=== PATIENT | female | born 1965 | race Caucasian/White ===

== ENCOUNTER 2017-01-03 05:31 | Day surgery (SDC) | payer OTHER ==
--- NOTE | 2016-12-11 14:58 | GHP ---
[f rep st] PREOP HISTORY AND PHYSICAL SCHEDULED DATE OF SURGERY: 01/03/2017 at 7:15 a.m. SURGERY TO BE PERFORMED: Hysteroscopy, dilation and curettage, polypectomy with morcellator. PREOPERATIVE DIAGNOSIS: Postmenopausal bleeding and endometrial polyp. HISTORY OF PRESENT ILLNESS: The patient is a 51-year-old, 1, para 0-0-1 -0, who has been postmenopausal since November of 2015. She was having hot flashes, night sweats, and significant menopausal symptoms and was started on hormone replacement therapy in February of 2016. She did well, with resolution of her symptoms until approximately September when she began having some postmenopausal bleeding, spotting for a couple weeks, small amounts of bleeding here and there, but consistent. She had an adjustment of her HRT dose, which did not improve the problem and, in fact, worsened it, so she had an ultrasound that was performed, and in that, she had a thin endometrial lining, which was only 0.17 cm, but at the top of her endometrium, she had a hyperechoic mass with a feeder vessel, which was measuring 9 x 5 x 8 mm, likely a polyp. Since that ultrasound, she continues to have significant bleeding, bleeding daily, requiring a panty liner and occasionally heavy episodes requiring multiple tampons a day. She has also felt increasing bloating and discomfort, so because of the symptoms, as well as the persistent bleeding, my recommendation was to proceed with a hysteroscopy, D and C, and polypectomy, and patient is in agreement. PAST MEDICAL HISTORY: The patient has no significant past medical problems or significant past medical history. PAST OB HISTORY: She had 1 elective termination 25 years ago. No other pregnancies. No other complications. PAST GYNECOLOGICAL HISTORY: She had a normal menstrual triad with menarche at 14, 3 days of flow every 25 days until they gradually stopped approximately a year ago. She has been on hormone replacement therapy. She has no history of any abnormal Pap smears and gets regular mammograms. No history of any STDs. CURRENT MEDICATIONS: Include Minivelle 0.05 mg patches 2 times a week, Prometrium 200 mg q.h.s., multivitamin, vitamin D, and some antihistamine and nasal spray for allergies and URI symptoms. ALLERGIES: She is allergic to amoxicillin; it gives her a rash. PAST SURGICAL HISTORY: Her only surgical procedure is an elective termination of , and she had a colonoscopy, and she did well with anesthesia. FAMILY HISTORY: She is adopted. She is not aware of her family history. OBJECTIVE: VITAL SIGNS: Today, her blood pressure is 102/60. Weight is 147. GENERAL: She is a well-developed, well-nourished white female, in no acute distress. LUNGS: Clear to auscultation bilaterally. HEART: Regular rate and rhythm. No murmur. ABDOMEN: Soft, nontender, nondistended. Normal bowel sounds. PELVIC: Normal external genitalia. Normal nulliparous cervix. Uterus is anteverted, anteflexed, mobile, nontender. No adnexal masses. ASSESSMENT AND PLAN: A 51-year-old, 1, para 0-0-1-0, with postmenopausal bleeding, ultrasound revealing an endometrial polyp, for a hysteroscopy, dilation and curettage, polypectomy with morcellator. She was consented for the procedure today. She understands the risks and benefits, the risks, including bleeding, infection, damage to organs, including possible risk of perforation of the uterus, and risk of damage to other organs and perforation were to occur, risk of incomplete treatment of bleeding, and the need for additional procedures. She understood these risks and benefits and agreed to proceed. /[id number]/MODL MTDD
[2017-01-03] MEDS ORDERED: LR 1,000 ML IV ONE (06:08)
[2017-01-03 06:34] VITALS: PULSE 67
--- NOTE | 2017-01-03 07:00 | PDANEPAE ---
ANE History of Present Illness DUB ANE Past Medical History - Cardiovascular History Hx Hypertension: No Hx Arrhythmias: No Hx Chest Pain: No Hx Coronary Artery / Peripheral Vascular Disease: No Hx CHF / Valvular Disease: No Hx Palpitations: No - Pulmonary History Hx COPD: No Hx Asthma/Reactive Airway Disease: No Hx Recent Upper Respiratory Infection: No Hx Oxygen in Use at Home: No Hx Sleep Apnea: No Sleep Apnea Screening Result - Last Documented: Negative - Neurologic History Hx Cerebrovascular Accident: No Hx Seizures: No Hx Dementia: No - Endocrine History Hx Diabetes: No - Renal History Hx Renal Disorders: No - Liver History Hx Hepatic Disorders: No - Neurological & Psychiatric Hx Hx Neurological and Psychiatric Disorders: Yes Neurological / Psychiatric History Comment: neck pain - Cancer History Hx Cancer: No - Congenital Disorder History Hx Congenital Disorders: No - GI History Hx Gastrointestinal Disorders: No - Other Health History Other Health History: endometrial polyp. - Chronic Pain History Chronic Pain: No - Surgical History Prior Surgeries: none ANE Review of Systems Review of systems is: negative Review of Systems: - Exercise capacity Exercise capacity: >=4 METS METS (RN): 4 METS ANE Patient History - Allergies Allergies/Adverse Reactions: amoxicillin [Amoxicillin] Allergy (Verified 01/03/17 06:06) Rash - Home Medications Home medications: home medication list seen and reviewed Home Medications: MULTIVITAMINS 10/12/13 [Last Taken 12/27/16] Claritin 12/24/16 [Last Taken 12/27/16] Minivelle 12/24/16 [Last Taken 01/02/17] Nasal [place] 12/24/16 [Last Taken 12/27/16] Progesterone 12/24/16 [Last Taken 01/02/17] Vitamin D3 12/24/16 [Last Taken 12/27/16] - NPO status NPO Status: no food or drink >8 hours NPO Since - Liquids (Date): 01/02/17 NPO Since - Liquids (Time): 23:00 NPO Since - Solids (Date): 01/02/17 NPO Since - Solids (Time): 20:00 - Anes Hx Anes Hx: no prior problems - Smoking Hx Smoking Status: Never smoked - Alcohol Use Alcohol Use: Occasionally (10/wk) - Family Anes Hx Family Hx Anesthesia Complications: adopted ANE Labs/Vital Signs - Vital Signs Blood Pressure: 106/74 Heart Rate: 67 Respiratory Rate: 16 O2 Sat (%): 96 Height: 171.45 cm Weight: 67.132 kg ANE Physical Exam - Airway Mallampati Score: Class 2 Mouth exam: normal dental/mouth exam - Pulmonary Pulmonary: no respiratory distress - Cardiovascular Cardiovascular: regular rate and rhythym - ASA Status ASA Status: I ANE Anesthesia Plan Anesthesia Plan: GA w LMA
[2017-01-03] MEDS ORDERED: MIDAZOLAM 2 MG/2 ML VIAL IVP ONE (07:03)
[2017-01-03] MEDS ORDERED: SILVER NITRATE APPLICATOR 1 APPL TP ONE (07:12)
[2017-01-03] MEDS ORDERED: fentaNYL 100 MCG/2 ML INJ ONE (07:27)
[2017-01-03] MEDS ORDERED: DEXAMETHASONE 4 MG/ML VIAL ONE ×2 (07:27)
[2017-01-03] MEDS ORDERED: PROPOFOL 200 MG/20 ML VIAL ONE (07:27)
[2017-01-03] MEDS ORDERED: LIDOCAINE 2% 5 ML SDV ONE (07:27)
--- NOTE | 2017-01-03 07:30 | PDHPUP ---
History & Physical Update H&P update statement: This history and physical update is based on an assessment of the patient which was completed after admission or registration (within 24 hours), but prior to the surgery/procedure.
[2017-01-03] MEDS ORDERED: HYDROCODONE/APAP 5/325 TAB PO PRN (08:03)
[2017-01-03] MEDS ORDERED: ONDANSETRON 4 MG/2 ML VIAL IVP PRN (08:03)
[2017-01-03] MEDS ORDERED: fentaNYL 100 MCG/2 ML INJ IVP PRN (08:03)
[2017-01-03] MEDS ORDERED: HYDROmorphONE/DILAUDID 1 MG/ML INJ IVP PRN (08:03)
[2017-01-03] MEDS ORDERED: PROMETHAZINE HCL 25 MG/ML INJ IVP PRN (08:03)
[2017-01-03] MEDS ORDERED: ALBUTEROL 3 ML DEYVIAL IH PRN (08:03)
[2017-01-03] MEDS ORDERED: MEPERIDINE 25 MG/ML SYR IVP PRN (08:03)
[2017-01-03] MEDS ORDERED: NALOXONE HCL 0.4 MG/ML INJ IVP PRN (08:03)
[2017-01-03] MEDS ORDERED: ACETAMINOPHEN 500 MG TAB PO PRN (08:03)
[2017-01-03] MEDS ORDERED: IBUPROFEN 600 MG TAB PO PRN (08:22)
--- NOTE | 2017-01-03 08:27 | POSTOPPROG ---
Post Op Note Date of Operation: 01/03/17 Surgeon: Shira Haley Anesthesiologist: Dr. Jones Christensen Anesthesia: GET(General Endotracheal) Pre-op Diagnosis: post menopausal bleeding, endometrial polyp Post-op Diagnosis: same Procedure: Hysteroscopy D and C, polypectomy with morcellator Findings: endometrial polyp Inf/Abcess present in the surg proc area at time of surgery?: No Depth: Organ Space EBL: Minimal Total fluids administered: 1300 Specimen(s): endometrial polyp
[2017-01-03 08:30] VITALS: TEMP 97.5
[2017-01-03 09:15] VITALS: RESP 33; O2SAT 98
--- NOTE | 2017-01-03 09:18 | POSTANESTH ---
Post Anesthetic Evaluation Cardiovascular Status: Normal, Stable Respiratory Status: Normal, Stable Level of Consciousness/Mental Status: Can Participate in Eval Pain Control: Adequate, Prn Tx Ordered Nausea/Vomiting Control: Adequate, Prn Tx Ordered Complications Possibly Related to Anesthesia: None Noted
[2017-01-03 09:55] VITALS: BP 122/80
--- NOTE | 2017-01-03 10:03 | GOP ---
[f rep st] OPERATIVE REPORT DATE OF OPERATION: 01/03/2017 SURGEON: Shira Haley MD PREOPERATIVE DIAGNOSIS: Postmenopausal bleeding and endometrial polyp. POSTOPERATIVE DIAGNOSIS: Postmenopausal bleeding and endometrial polyp. PROCEDURE PERFORMED: Hysteroscopy, dilation and curettage, polypectomy with morcellator. FINDINGS: SPECIMENS: Endometrial polyp. ESTIMATED BLOOD LOSS: Less than 20 cc. INDICATIONS: The patient is a 51-year-old 1, para 0-0-1-0 who has been postmenopausal since November of 2015. She was having significant hot flashes, night sweats, and menopausal symptoms, wa s started on hormone replacement therapy in February. She did well, with resolution of her sy mptoms, until approximately September when she began having some postmenopausal spotting, small amounts of bleeding, never consistent. We adjusted her HRT dose, but this did not improve the problem and, in fact, worsened it. She had ultrasound, which revealed a thin endometrial lining, only 0.7 cm, but at the top of her endometrium, she had a hyperechoic mass with a feeder vessel measuring 9 x 5 x 8 mm, likely a polyp. She continued to have significant daily bleeding, and we discussed treatment options , and patient wished to have a hysteroscopy, D and C, polypectomy. She was consented for the procedu re. She understood the risks and benefits, the risks including bleeding, infection, damage to uterus including possible risk of perforation, damage to other organs if perforation were to occur, risk of electrolyte imbalances, and need for additional procedures. She understood these risks and benefits and agreed to proceed. DESCRIPTION OF PROCEDURE: Patient was taken to the operating room, where she was placed under genera l anesthesia without difficulty. She was prepped and draped in the dorsal lithotomy position. After a WHO time-out was performed, an open-sided speculum was placed in the vagina, and a single-tooth te naculum was used to grasp the anterior lip of the cervix. The uterus sounded to 9 cm. The cervix wa s then progressively dilated with Zuñiga dilators to a #6. The hysteroscope was then gently inserted into the cervix and advanced to the fundus. Inspection of the endometrial cavity revealed an endomet rial polyp at the fundal portion of the uterus, toward the right tubal ostia. The morcellator with p olyp blade was then advanced through the operative channel. Window lock was performed and a polypect ramón was performed, with care to place the suction on to achieve the specimen. The polyp was morcella sara without difficulty, and the remaining endometrial cavity was thin and clear of any pathology. Th e hysteroscope was then removed. The tenaculum was removed. There were small areas of bleeding brendon g the tenaculum sites, which were cauterized with silver nitrate. The patient tolerated the procedur e well. Sponge, lap, needle, and instrument counts were correct x2. Patient went to the recovery ro in good condition. FLUIDS REPLACED: 1300 cc, and there was 170 deficit through the hysteroscope. /[id number]/MODL
== END 2017-01-03 10:02 | disposition home or self-care (01) ==
LOC: FSGY 05:31
PROVIDERS: ATTEND Obstetrics & Gynecology
PROC: 0UDB8ZZ Extraction of Endometrium, Via Natural or Artificial Opening Endoscopic (ICD-10-PCS; principal; 2017-01-03 07:15)
DX: N84.0 Polyp of corpus uteri (principal); N95.0 Postmenopausal bleeding
CPT/HCPCS: 58558; C1782; J1100; J2250; J2704; J3010

== ENCOUNTER → 2017-05-03 | Outpatient (CLI) | payer OTHER | LOC: FIMAGING 08:11 | PROVIDERS: ATTEND Obstetrics & Gynecology | DX: Z12.31 Encounter for screening mammogram for malignant neoplasm of breast (principal) ==